=== PATIENT | female | born 1980 | race African-American/Black ===

== ENCOUNTER 2017-03-20 21:36 | Emergency (ER) | payer MEDICAID ==
[~2017-03-20] VITALS: Ht 162.6 cm; Wt 93.5 kg
[~2017-03-20 21:36] MED LIST: FERR324T4 PO
[2017-03-20 22:04] VITALS: BP 140/73; PULSE 64; RESP 18; TEMP 98.4; O2SAT 100
--- NOTE | 2017-03-20 22:40 | RADRPT ---
EXAM DATE/TIME: 03/20/2017 22:27 [facility] COMPARISON: No previous studies available for comparison. INDICATIONS : Trauma, fall. MEDICAL HISTORY : None. SURGICAL HISTORY : None. ENCOUNTER: Initial ACUITY: 2 days PAIN SCORE: 5/10 LOCATION: Left shoulder. FINDINGS: No definite fractures, or dislocations are identified. No definite lytic or sclerotic lesion is seen . The joint space is well maintained. CONCLUSION: Unremarkable study. Ebony Bay MD on March 20, 2017 at 22:38 Board Certified Radiologist. This report was verified electronically.
--- NOTE | 2017-03-20 22:43 | PD ---
HPI Chief Complaint: Injury Time Seen by Provider: 22:12 Travel History International Travel<30 days: No Contact w/Intl Traveler<30days: No Traveled to known affect area: No History of Present Illness HPI 37-year-old female presents to the emergency department by private transportation for complaint of left shoulder and trapezius pain status post non -syncopal fall 2 days ago. Patient states she was getting out of the shower and her toe caught on the edge of the shower causing her to fall 4. Patient caught her fall with outstretched left upper extremity. Patient denies hitting her head or having loss of consciousness. Since fall patient is noted left shoulder pain and left trapezius pain. Patient is right-handed. Patient notes decreased range of motion of the left upper extremity of the left shoulder with abduction of the left upper extremity. Patient denies previous injury to the left shoulder and left upper extremity. Patient denies any humeral elbow forearm wrist or hand pain affecting the left upper extremity. No paresthesias or weakness. No deformity or ecchymosis or swelling. Patient denies any chest pain or rib pain or shortness of breath. He should denies other injury. The patient rates her pain 8/10 intensity. Patient denies . PFSH Past Medical History Narrative Medical Anemia, D&C, tubal ligation, AB 2; nursing notes reviewed Medical History: Denies Significant Hx Blood Disorders: No Anxiety: No Depression: No Cancer: No Cardiovascular Problems: No Chemotherapy: No Diminished Hearing: No Endocrine: No Genitourinary: No Immune Disorder: No Musculoskeletal: No Psychiatric: No Reproductive: No Respiratory: No Immunizations Current: Yes Radiation Therapy: No Tetanus Vaccination: > 5 Years Influenza Vaccination: No ?: Not : 7 Para: 5 Miscarriage: 2 Dilation and Curettage (D&C): Yes Tubal Ligation: Yes Past Surgical History Abdominal Surgery: Yes () AICD: No Arteriovenous Shunt: No Section: Yes Insulin Pump: No Joint Replacement: No Pacemaker: No Other Surgery: Yes Social History Alcohol Use: Yes (OCC) Tobacco Use: Yes (3 CIGS) Substance Use: No Allergies-Medications (Allergen,Severity, Reaction): Coded Allergies: riky (Unverified Allergy, Intermediate, Rash, 03/20/17) Uncoded Allergies: [place] beef (Allergy, Intermediate, Rash, 01/29/16) Reported Meds & Prescriptions Reported Meds & Active Scripts Active No Active Prescriptions or Reported Medications Review of Systems Except as stated in HPI: all other systems reviewed are Neg General / Constitutional: No: Fever Eyes: No: Visual changes HENT: No: Headaches, Neck Stiffness Cardiovascular: No: Chest Pain or Discomfort Respiratory: No: Shortness of Breath Gastrointestinal: No: Abdominal Pain Genitourinary: No: Flank Pain Musculoskeletal: Positive: Limited ROM (left shoulder), Pain (left shoulder) Skin: No Rash Neurologic: No: Weakness, Focal Abnormalities, Coordination Problem, Paresthesia Psychiatric: No: Anxiety Hematologic/Lymphatic: No: Lymph Node Enlargement Physical Exam Narrative GENERAL: Well-developed well-nourished female in no acute distress no respiratory distress. GCS 15. SKIN: Warm and dry. HEAD: Normocephalic. EYES: No scleral icterus. No injection or drainage. NECK: Supple, trachea midline. No JVD or lymphadenopathy. Tenderness to palpation along the left trapezius distribution. CARDIOVASCULAR: Regular rate and rhythm without murmurs, gallops, or rubs. RESPIRATORY: Breath sounds equal bilaterally. No accessory muscle use. GASTROINTESTINAL: Abdomen soft, non-tender, nondistended. MUSCULOSKELETAL: No cyanosis, or edema. No deformity patient demonstrates intact range of motion of the left upper extremity at the shoulder except for abduction which is limited to less than 90; distally extremity is neurovascular tendon intact with brisk capillary refill less than 2 seconds per digit technology project manager strength 5 over 5 some apposition intact radial volar pulses 2+ to palpation no deformity intact wrist range of motion all range of motion. BACK: Nontender without obvious deformity. No CVA tenderness. Data Data Last Documented VS Vital Signs Date Time Temp Pulse Resp B/P (MAP) Pulse Ox O2 Delivery O2 Flow Rate FiO2 03/20/17 22:14 (95) 03/20/17 22:04 98.4 64 18 100 Orders Orders Spine, Cervical - Ltd (Ap&Lat) (03/20/17 ) Shoulder, Complete (>2vws) (03/20/17 ) [facility] Medical Decision Making Medical Screen Exam Complete: Yes Emergency Medical Condition: Yes Medical Record Reviewed: Yes Interpretation(s) c-spine xr: Chronic degenerative changes no acute abnormality Left shoulder x-ray: No acute bony abnormalities Differential Diagnosis Contusion sprain strain bursitis fracture subluxation dislocation or rotator cuff injury, clavicular separation, trapezius strain, cervical spine sprain strain fracture Narrative Course imaging of the left shoulder and limited study of the cervical spine were ordered Diagnosis Primary Impression: Trapezius strain Additional Impression: Injury of left shoulder Referrals: Primary Care Physician call for appointment Patient Instructions: General Instructions Additional Instructions: Apply moist heat to shoulder area Wear sling Follow-up with primary care provider Take ibuprofen 800 mg as often as every 8 hours as needed for pain associated inflammation Take muscle relaxants as prescribed as needed Return to the emergency department for any concerns or change in condition Med/Other Pt SpecificInfo: Prescription(s) given Scripts Methocarbamol (Robaxin) 750 Mg Tab 750 MG PO Q6HR for Muscle Spasm, #12 TAB 0 Refills Prov: Sonia Mathis MD 03/20/17 Disposition: 01 DISCHARGE HOME Condition: Stable Sonia Mathis MD Mar 20, 2017 22:43
--- NOTE | 2017-03-20 22:46 | RADRPT ---
EXAM DATE/TIME: 03/20/2017 22:17 [facility] COMPARISON: No previous studies available for comparison. INDICATIONS : Trauma, fall. MEDICAL HISTORY : None. SURGICAL HISTORY : None. ENCOUNTER: Initial ACUITY: 2 days PAIN SCORE: 5/10 LOCATION: Left neck FINDINGS: No appreciable subluxation or soft tissue swelling is seen. Degenerative spondylosis is present thro ughout worse at C5-6 and C6-7 to a moderate degree. CONCLUSION: Degenerative spondylosis. KAnahi Bay MD on March 20, 2017 at 22:43 Board Certified Radiologist. This report was verified electronically.
[2017-03-20] MEDS ORDERED: ROBA750T PO (23:05)
[2017-03-20] MEDS ORDERED: METHOCARBAMOL 500 MG TAB PO ONE (23:15)
[2017-03-20] MEDS ORDERED: IBUPROFEN 800 MG TAB PO ONE (23:15)
== END 2017-03-20 23:20 | disposition home or self-care (01) ==
LOC: PHED 21:36 → PHEFT 23:20
DX: S46.819A Strain of other muscles, fascia and tendons at shoulder and upper arm level, unspecified arm, initial encounter (principal); W18.2XXA Fall in (into) shower or empty bathtub, initial encounter; F17.210 Nicotine dependence, cigarettes, uncomplicated
CPT/HCPCS: 72040; 73030; 99284